=== PATIENT | female | born 1950 | race Caucasian/White ===

== ENCOUNTER 2021-06-16 08:17 | Outpatient (CLI) | payer BC, OTHER | END 2021-06-16 08:18 | disposition home or self-care (01) | LOC: BICMAMMO 08:17 | PROVIDERS: ATTEND Family Medicine | DX: Z12.31 Encounter for screening mammogram for malignant neoplasm of breast (principal); Z13.820 Encounter for screening for osteoporosis; Z78.0 Asymptomatic menopausal state; Z80.3 Family history of malignant neoplasm of breast; M85.89 Other specified disorders of bone density and structure, multiple sites | CPT/HCPCS: 77063; 77067; 77080 ==

== ENCOUNTER 2022-11-17 11:59 | Outpatient (CLI) | payer BC, MEDICARE | END 2022-11-17 12:00 | disposition home or self-care (01) | LOC: BICMAMMO 11:59 | PROVIDERS: ATTEND Family Medicine | DX: Z12.31 Encounter for screening mammogram for malignant neoplasm of breast (principal); Z80.3 Family history of malignant neoplasm of breast | CPT/HCPCS: 77063; 77067 ==

== ENCOUNTER 2023-04-20 19:00 | Outpatient (CLI) | payer BC, MEDICARE | END 2023-04-20 19:01 | disposition home or self-care (01) | LOC: SLEEPLAB 19:00 | PROVIDERS: ATTEND Internal Medicine Critical Care Medicine | DX: G47.33 Obstructive sleep apnea (adult) (pediatric) (principal); I10 Essential (primary) hypertension; I49.9 Cardiac arrhythmia, unspecified; R06.83 Snoring; G47.10 Hypersomnia, unspecified; I48.91 Unspecified atrial fibrillation; G47.00 Insomnia, unspecified | CPT/HCPCS: 95810 ==

== ENCOUNTER 2023-10-01 08:39 | Outpatient (CLI) | payer MEDICARE | END 2023-10-01 08:40 | disposition home or self-care (01) | LOC: BICMAMMO 08:39 | PROVIDERS: ATTEND Family Medicine | DX: Z13.820 Encounter for screening for osteoporosis (principal); Z78.0 Asymptomatic menopausal state; M85.851 Other specified disorders of bone density and structure, right thigh; M85.852 Other specified disorders of bone density and structure, left thigh | CPT/HCPCS: 77080 ==

== ENCOUNTER 2023-11-23 11:40 | Outpatient (CLI) | payer MEDICARE | END 2023-11-23 11:41 | disposition home or self-care (01) | LOC: BICMAMMO 11:40 | PROVIDERS: ATTEND Family Medicine | DX: Z12.31 Encounter for screening mammogram for malignant neoplasm of breast (principal); Z80.3 Family history of malignant neoplasm of breast | CPT/HCPCS: 77063; 77067 ==